=== PATIENT | female | born 1970 | race Caucasian/White ===

== ENCOUNTER 2020-05-17 17:52 | Emergency (ER) | payer OTHER, SELFPAY ==
[2020-05-17 17:59] VITALS: BP 103/62; BP 110/70; PULSE 82; PULSE 87; RESP 16; TEMP 37.5; O2SAT 98; O2SAT 99; BMI 27.1
--- NOTE | 2020-05-17 18:14 | ED.SYNCOPE ---
HPI - Syncope General Chief Complaint: Syncope Stated Complaint: SYNCOPAL EPISODE Time Seen by Provider: 05/17/20 18:13 Source: patient Mode of arrival: EMS Limitations: no limitations History of Present Illness HPI narrative: Patient with significant past medical history received COVID vaccine 2 days ago her was diagnosed with COVID today came here because she was feeling weak and when bent down fell lightheaded and almost passed out patient denies any fever no cough no shortness of breath saturating 99% at room air MD complaint: felt faint and almost passed out Related Data Allergies Allergy/AdvReac Type Severity Reaction Status Date / Time No Known Allergies Allergy Unverified 10/25/19 16:45 Review of Systems Review of Systems: Constitutional : No Weight loss, No Fever, No Chills ENT/Mouth : No sore throat, No Rhinorrhea Eyes: No Eye Pain, No Swelling Cardiovascular : No Chest Pain, no palpitations Respiratory : No Cough, No Sputum, no shortness of breath Gastrointestinal : no Nausea, No Vomiting, No Diarrhea, No abdominal Pain, no black stools Genitourinary : No Dysuria, No Urinary Frequency Musculoskeletal : No joint pain, No Myalgias, No Joint Swelling Skin : No Skin Lesions, No rash Neuro : + Weakness, No Numbness, No Dizziness, No Headache Psych : No Anxiety/Panic, No Depression Heme/Lymph: No Bruising, No Lymphadenopathy Endocrine : No Polyuria, No Polydipsia All other systems reviewed and are negative [facility]LY [facility] Past Medical History Medical History Anxiety Arthritis Asthma delivery delivered Cholecystectomy planned Fibromyalgia Vertigo Surgical History Tubal ligation status Social History Social History Advance Directives: No Advance Directives Information Provided: Yes Physical Exam Vital Signs: Vital Signs: Last Vital Signs Temp 99.5 F 05/17/20 17:59 Pulse 86 05/17/20 18:43 Resp 16 05/17/20 18:43 BP 110/65 05/17/20 18:43 Pulse Ox 100 05/17/20 18:43 Body Mass Index 27.1 Appearance: Alert. Oriented X3. No acute distress. Eyes: Pupils equal, round and reactive to light. ENT: Pharynx normal. Neck: Normal inspection. Neck supple. CVS: Normal heart rate and rhythm. Pulses normal. Respiratory: No respiratory distress. Breath sounds normal. Abdomen: Soft and nontender. Bowel sounds are present, no mass palpable, no CVA tenderness Skin: Skin warm and dry. Normal skin color. Normal skin turgor. Extremities: No lower extremity edema. No calf tenderness Neuro: Oriented X 3. No motor deficit. No sensory deficit. MDM - Syncope MDM Narrative Medical decision making narrative: Patient COVID positive with near-syncope episode likely vasovagal saturating 99% at room air will discharge patient home Lab Data Attestation: I reviewed the patient's lab results. Labs: Lab Results 05/17/20 Range/Units 18:39 COVID-19 (JOCELYNE) Positive A (Negative) COVID-19 Clin Com See Note ECG Data Attestation: I personally reviewed and interpreted this ECG as follows: Interpretation: Heart rate 88 beats per minute nonspecific ST T wave changes normal axis no acute ischemia Discharge Plan Discharge Clinical Impression: Vasovagal syncope, COVID-19 Patient Disposition: Home, Self-Care Instructions: Syncope (ED), COVID-19 (Coronavirus Disease 2019) (ED) Additional Instructions: Drink plenty of fluids self isolate report to the ER if increased shortness of breath Interventions: ED Discharge Assessment Last Done: 05/17/20 20:14 Discharge Date/Time: 05/17/20 20:17
[2020-05-17 18:42] VITALS: O2SAT 100
[2020-05-17 18:43] VITALS: BP 110/65; PULSE 86; PULSE 88; RESP 16; O2SAT 100
[2020-05-17] MEDS: 0.9 % Sodium Chloride 1,000 ML 999 ML IVCONT (18:47)
[2020-05-17 19:04] LABS: COVID-19 Test Positive (Negative); IDNOW Serial# 9DD0AD1C
--- NOTE | 2020-05-17 19:15 | ECG_ITS ---
Test Reason : SYNCOPE Blood Pressure : / mmHG Vent. Rate : 088 BPM Atrial Rate : 088 BPM P-R Int : 168 ms QRS Dur : 078 ms QT Int : 362 ms P-R-T Axes : 052 001 -13 degrees QTc Int : 438 ms Normal sinus rhythm Nonspecific T wave abnormality Borderline ECG When compared with ECG of 13-NOV-2018 12:28, No significant change was found Referred By: Manuel Briones Electronically Signed By:YUSUF BROWN
== END 2020-05-17 20:17 | disposition home or self-care (01) ==
PROVIDERS: Emergency Provider Internal Medicine; PCP Internal Medicine
DX: U07.1 COVID-19 (principal); R55 Syncope and collapse; R53.1 Weakness
CPT/HCPCS: 36415; 87635; 93005; 96360; 99284

== ENCOUNTER 2020-09-08 16:26 | Emergency (ER) | payer OTHER, SELFPAY ==
[2020-09-08 17:36] VITALS: BP 111/56; PULSE 79; RESP 18; TEMP 36.2; O2SAT 100; BMI 26.6
[2020-09-08 19:17] LABS: MANUAL DIFF FLAG NO
[2020-09-08 19:19] LABS: Basophils Percent Auto 0.7 % (0-2); Eosinophils Absolute Auto 0.1 X10*3/uL (0.0-0.4); Eosinophils Percent Auto 2.4 % (0-4); Hematocrit 28.9 % (37-47); Hemoglobin 8.9 g/dl (12.0-16.0); Lymphocytes Absolute Auto 1.5 X10*3/uL (1.2-4.9); Lymphocytes Percent Auto 36.7 % (20-40); Mean Corpuscular HGB Conc 30.8 g/dl (31.0-35.0); Mean Corpuscular Hemoglobin 24.2 pg (27.0-33.0); Mean Corpuscular Volume 78.5 fL (80-98); Mean Platelet Volume 9.4 fL (9.4-12.3); Monocytes Absolute Auto 0.4 X10*3/uL (0.1-1.2); Monocytes Percent Auto 9.5 % (2-11); Neutrophils Absolute Auto 2.1 X10*3/uL (2.0-8.3); Neutrophils Percent Auto 50.7 % (45-73); Platelet Count 417 X10*3/uL (160-400); Red Blood Count 3.68 X10*6/uL (4.20-5.50); Red Cell Distribution Width 17.7 % (11.0-16.0); White Blood Count 4.2 X10*3/uL (4.8-10.8)
[2020-09-08 19:31] LABS: COVID-19 Test Negative (Negative)
[2020-09-08 19:37] LABS: Anion Gap 13 (12-20); Blood Urea Nitrogen 5 mg/dL (9-16); Calcium 9.5 mg/dL (8.4-10.2); Carbon Dioxide 25 mmol/L (22-29); Chloride 106 mmol/L (96-108); Creatinine Clr Calc Pharmacy 98.4; Estimated Glomerular Filt Rate > 60; Glucose Random 82 mg/dL (60-115); Potassium 3.9 mmol/L (3.3-5.1); Sodium 140 mmol/L (135-145)
[2020-09-08 20:28] VITALS: BP 103/64; PULSE 67; RESP 18; TEMP 36.7; O2SAT 100
[2020-09-08] MEDS: Butalb/Acetamin/Caff 50/325/40 TABLET 1 TAB PO (21:20)
--- NOTE | 2020-09-08 21:31 | PC.NURSE ---
Pt medicated per MAR, requesting Dr Briones to bedside with hourly sign language interpreter stating, in Nepali, I don't understand Nepali that well. The doctor came in and talked to me and I didn't understand everything. I told him about my headache but I didn't get to tell him about my legs which bother me every night. I heard interpreters being used for other patients, but nobody came to talk to me. Dr Briones made aware of pt's concerns/requests. Anselmo states let her know I'll come in to talk with her with the hourly sign language interpreter. Pt updated. Pt expresses understanding.
--- NOTE | 2020-09-08 21:47 | PC.NURSE ---
Dr Briones and translator interpreter at bedside
[2020-09-08 22:23] VITALS: BP 136/78; PULSE 60; RESP 14; TEMP 36.9; O2SAT 100
--- NOTE | 2020-09-08 22:39 | ED.HA ---
HPI - Headache General Chief Complaint: Headache Stated Complaint: headache Time Seen by Provider: 09/08/20 21:09 Source: patient Mode of arrival: ambulatory Limitations: no limitations History of Present Illness HPI Narrative: Patient with history of migraine headaches take sumatriptan been having headache for last 4 days not getting better light sensitive slight nausea no vomiting patient took her sumatriptan 2 days ago without much relief. No relation with position change no head injury no fever no neck pain. 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 MD elicited complaint: migraine Related Data Previous Rx's Medication Instructions Recorded clelziiuwq-kuaagxldendqp-wjburena 1 cap PO Q6H PRN #20 cap 09/08/20 50 mg-300 mg-40 mg capsule (Fioricet) tramadol 50 mg tablet 50 mg PO Q6H PRN #20 tab 09/08/20 Allergies Allergy/AdvReac Type Severity Reaction Status Date / Time No Known Allergies Allergy Verified 09/08/20 17:35 Review of Systems Review of Systems: Yes all other systems are reviewed and are negative FOR[facility]LY [facility] Past Medical History Medical History Anxiety Arthritis Asthma delivery delivered Cholecystectomy planned Fibromyalgia Vertigo Surgical History Tubal ligation status Social History Social History Advance Directives: No Advance Directives Information Provided: Yes Physical Exam Vital Signs: Vital Signs: Last Vital Signs Temp 98.4 F 09/08/20 22:23 Pulse 60 09/08/20 22:23 Resp 14 09/08/20 22:23 BP 136/78 09/08/20 22:23 Pulse Ox 100 09/08/20 22:23 Body Mass Index 26.6 Appearance: Alert. Oriented X3. No acute distress. Eyes: PERRLA, No Nystagmus ENT: Pharynx normal. Oral Mucosa moist, no temporal artery tenderness Neck: Normal inspection. Neck supple. CVS: Normal heart rate and rhythm. Pulses normal. Respiratory: No respiratory distress. Equal air entry bilateral, no wheezing/rales/rhonchi Abdomen: Soft and nontender. Bowel sounds are present, no mass palpable, no CVA tenderness Skin: Skin warm and dry. Normal skin color. Normal skin turgor. Extremities: No lower extremity edema. No calf tenderness Neuro: Oriented X 3. No motor deficit. No sensory deficit.No cerebellar signs , cranial nerves II-XII intact MDM - Headache MDM Narrative Medical decision making narrative: Patient feeling much better after Imitrex headache is almost gone will discharge patient home on Fioricet for peripheral neuropathy. Patient advised to follow-up with her inside sales engineer patient already taking gabapentin Differential Diagnosis Differential diagnosis: Likely migraine Lab Data Result diagrams: 09/08/20 19:12 09/08/20 19:12 Labs: Lab Results 09/08/20 09/08/20 09/08/20 Range/Units 19:09 19:12 19:12 WBC 4.2 L (4.8-10.8) X10*3/uL RBC 3.68 L (4.20-5.50) X10*6/uL Hgb 8.9 L (12.0-16.0) g/dl Hct 28.9 L (37-47) % MCV 78.5 L (80-98) fL MCH 24.2 L (27.0-33.0) pg MCHC 30.8 L (31.0-35.0) g/dl RDW 17.7 H (11.0-16.0) % Plt Count 417 H (160-400) X10*3/uL MPV 9.4 (9.4-12.3) fL Immature Gran % (Auto) 0.0 (0.0-0.4) % Neut % (Auto) 50.7 (45-73) % Lymph % (Auto) 36.7 (20-40) % [place] % (Auto) 9.5 (2-11) % Eos % (Auto) 2.4 (0-4) % Baso % (Auto) 0.7 (0-2) % Lymph # (Auto) 1.5 (1.2-4.9) X10*3/uL [place] # (Auto) 0.4 (0.1-1.2) X10*3/uL Eos # (Auto) 0.1 (0.0-0.4) X10*3/uL Baso # (Auto) 0.0 (0.0-0.2) X10*3/uL Abs Immat Gran (auto) 0.00 (0.00-0.03) X10*3/uL Absolute Neuts (auto) 2.1 (2.0-8.3) X10*3/uL Absolute Nucleated RBC 0.000 (0.0-0.012) X10*3/uL Nucleated RBC % (auto) 0.0 (0.0-0.2) /100WBC Sodium 140 (135-145) mmol/L Potassium 3.9 (3.3-5.1) mmol/L Chloride 106 (96-108) mmol/L Carbon Dioxide 25 (22-29) mmol/L Anion Gap 13 (12-20) BUN 5 L (9-16) mg/dL Creatinine 0.65 (0.5-1.4) mg/dL Estim Creat Clear Calc 98.4 Estimated GFR > 60 Random Glucose 82 (60-115) mg/dL Calcium 9.5 (8.4-10.2) mg/dL COVID-19 (JOCELYNE) Negative (Negative) COVID-19 Clin Com See Note Discharge Plan Discharge Clinical Impression: Migraine Qualifiers: Migraine type: without aura Status migrainosus presence: with status migrainosus Intractability: not intractable Qualified Code(s): G43.001 - Migraine without aura, not intractable, with status migrainosus Patient Disposition: Home, Self-Care Instructions: Migraine Headache (ED) Additional Instructions: Rest at home take medication for migraine as advised and follow with PCP Prescriptions: New tramadol 50 mg tablet 50 mg PO Q6H PRN (Reason: pain) Qty: 20 RF: 0 rerzsnihmn-imbimdctkgjyz-hsta [Fioricet] 50-300-40 mg capsule 1 cap PO Q6H PRN (Reason: Migraine Headache) Qty: 20 RF: 0 Print Language: Armenian
[2020-09-08 23:08] VITALS: BP 114/53; PULSE 64; RESP 16; O2SAT 98
== END 2020-09-08 23:18 | disposition home or self-care (01) ==
PROVIDERS: Emergency Provider Internal Medicine; PCP Internal Medicine
DX: G43.001 Migraine without aura, not intractable, with status migrainosus (principal); Z79.899 Other long term (current) drug therapy; Z20.822 Contact with and (suspected) exposure to COVID-19
CPT/HCPCS: 36415; 80048; 85025; 87635; 96372; 99284; J3030

== ENCOUNTER 2020-09-16 11:30 | Outpatient (REF) | payer OTHER, SELFPAY | END 2020-09-16 11:31 | disposition home or self-care (01) | LOC: HO.LAB 11:30 | PROVIDERS: PCP Internal Medicine; Visit Provider Internal Medicine | DX: Z20.822 Contact with and (suspected) exposure to COVID-19 (principal) | CPT/HCPCS: C9803; U0003; U0005 ==

== ENCOUNTER 2023-05-25 09:31 | Emergency (ER) | payer OTHER, SELFPAY ==
[2023-05-25] VITALS (9 sets, daily range): BP systolic 100–126; BP diastolic 61–82; PULSE 76–85; RESP 14–20; TEMP 36.4–37.1; O2SAT 96–100; BMI 29.8
--- NOTE | 2023-05-25 10:24 | ECG_ITS ---
Test Reason : NEAR SYNCOPE Blood Pressure : / mmHG Vent. Rate : 082 BPM Atrial Rate : 082 BPM P-R Int : 158 ms QRS Dur : 078 ms QT Int : 364 ms P-R-T Axes : 051 006 -02 degrees QTc Int : 425 ms Normal sinus rhythm Nonspecific ST and T wave abnormality Borderline ECG When compared with ECG of 17-MAY-2020 19:09, No significant change was found Referred By: Oumou George Electronically Signed By:YUSUF BROWN
--- NOTE | 2023-05-25 10:31 | ED.NAVMDI ---
HPI - Nausea/Vomiting/Diarrhea General Chief complaint: Nausea/Vomiting/Diarrhea Stated complaint: DIZZY,ABD PAIN,N/V THIS AM PER EMS Time Seen by Provider: 05/25/23 09:56 Source: patient, family and old records reviewed Mode of arrival: EMS Limitations: no limitations History of Present Illness HPI Narrative: 53 yo female with PMH of RA on methotrexate, fibromyalgia, prior c section, cholecystectomy, tubal ligation here with c/o having n/v/d this AM no travel, antibiotics felt weak and dizzy with near syncopal event no CP/SOB. Did have sharp abdominal pain during event that has resolved. Might have had bad cheese last night. No black or bloody stools. MD elicited complaint: nausea, vomiting, diarrhea and abdominal pain Onset (ago): hour(s) (few) Description of vomiting: watery Description of diarrhea: watery Associated nausea: Yes Associated abdominal pain: Yes Location of pain: diffuse Radiation: diffuse Pain consistency: now resolved Severity: moderate Quality: stabbing Exacerbating factors: none Relieving factors: none Associated symptoms: loss of appetite, malaise, nausea/vomiting, syncope (near) and weakness Related Data Previous Rx's ?Medication ?Instructions ?Recorded mdrcuxwylz-ujzdetmqxdmlg-toofmsqx 1 cap PO Q6H PRN Migraine Headache 09/08/20 50 mg-300 mg-40 mg capsule #20 caps (Fioricet) tramadol 50 mg tablet 50 mg PO Q6H PRN pain #20 tabs 09/08/20 ondansetron 4 mg disintegrating 4 mg PO Q8H PRN nausea and 05/25/23 tablet vomiting #20 tabs Allergies Allergy/AdvReac Type Severity Reaction Status Date / Time No Known Allergies Allergy Verified 05/25/23 09:53 Review of Systems Review of Systems: Constitutional : No Weight loss, No Fever, No Chills ENT/Mouth : No sore throat, No Rhinorrhea Eyes: No Swelling, No Redness Cardiovascular : No Chest Pain, No SOB, NoEdema Respiratory : No Cough, No Sputum, No Wheezing Gastrointestinal : Positive Nausea, Positive Vomiting, positive Diarrhea, positive abdominal Pain, No Hematochezia, No Melena Genitourinary : No Dysuria, No Urinary Frequency, No Hematuria, No Urgency Musculoskeletal : No joint pain, No Myalgias, No Joint Swelling Skin : No Skin Lesions, No rash Neuro : No Weakness, No Numbness, pos Dizziness, No Headache Psych : No Anxiety/Panic, No Depression Heme/Lymph: No Bruising, No Lymphadenopathy Endocrine : No Polyuria, No Polydipsia All other systems reviewed and are negative. Gastrointestinal: Gastrointestinal: Reports nausea PMFSH Past Medical History Attestation statement: The following information was validated with the patient. Source: old records reviewed Medical History Cholecystectomy planned delivery delivered Fibromyalgia Asthma Vertigo Arthritis Anxiety Surgical History Tubal ligation status Social History Social History (Updated 05/25/23 @ 10:38 by Oumou George DO) Patient Tobacco Use Status: Never used Tobacco Smoked in Last 30 Days: No Use of substances other than those prescribed or required for medical reasons: No Advance Directives: No Physical Exam Vital Signs: Vital Signs: Last Vital Signs Temp 98.7 F 05/25/23 13:50 Pulse 83 05/25/23 13:50 Resp 19 05/25/23 13:50 BP 105/61 05/25/23 13:50 Pulse Ox 97 05/25/23 13:50 O2 Del Method Room Air 05/25/23 13:50 BMI result Body Mass Index 29.8 Appearance: Alert. Oriented X3. No acute distress. Eyes: Pupils equal, round and reactive to light. ENT: Pharynx normal. Neck: Normal inspection. Neck supple. CVS: Normal heart rate and rhythm. Pulses normal. Respiratory: No respiratory distress. Breath sounds normal. Abdomen: Soft and nontender. Skin: Skin warm and dry. Normal skin color. Normal skin turgor. Extremities: No lower extremity edema. No calf ttp Neuro: Oriented X 3. No motor deficit. No sensory deficit. Medications Administered Discontinued Medications Generic Name Dose Route Start Last Admin Trade Name Freq PRN Reason Stop Dose Admin Sodium Chloride 1,000 mls @ 999 mls/hr 05/25/23 10:30 05/25/23 11:43 Ns IV 05/25/23 11:30 Infused .Q1H1M CHHAYA Infusion Sodium Chloride 1,000 mls @ 999 mls/hr 05/25/23 10:30 05/25/23 12:10 Ns IV 05/25/23 11:30 Infused .Q1H1M CHHAYA Infusion Ondansetron HCl 4 mg 05/25/23 10:23 05/25/23 10:54 Ondansetron Hcl 4 Mg/2 Ml Vial IVPUSH 05/25/23 10:24 4 mg ONCE ONE Administration Medical Decision Making Medical Decision Making [facility] Narrative: 53 yo female with PMH of RA on methotrexate, fibromyalgia, prior c section, cholecystectomy, tubal ligation here with start of nausea, vomiting, diarrhea this AM then developed 2 episodes of near syncope and feeling weak had sharp abdominal pain afterwards. Family was with her no trauma or headstrike. No CP/SOB. At this time suspect GI illness triggering near vasovagal episode. Will obtain labs, hydrate x 2L, zofran. Has no abdominal ttp on exam. No focal neuro findings no headache. Differential Diagnosis Differential Diagnoses: The differential diagnosis associated with the presentation includes GI illness, near syncope, dehydration, orthostatic VS Admission/Observation Consideration of admission/observation: Escalation of care including admission/observation considered repeat trop negative feels much better stable for DC tolerating PO, no dizziness when standing Lab Data [facility] Lab Attestation statement: I reviewed the patient's lab results. 05/25/23 11:17 05/25/23 11:17 Labs: Lab Results 05/25/23 05/25/23 05/25/23 Range/Units 11:17 11:49 13:18 WBC 7.9 (4.8-10.8) X10*3/uL RBC 4.32 (4.20-5.50) X10*6/uL Hgb 13.1 (12.0-16.0) g/dl Hct 40.2 (37.0-47.0) % MCV 93.1 (80.0-98.0) fL MCH 30.3 (27.0-33.0) pg MCHC 32.6 (31.0-35.0) g/dl RDW 13.2 (11.0-16.0) % Plt Count 255 (160-400) X10*3/uL MPV 10.2 (9.4-12.3) fL Immature Gran % (Auto) 0.4 (0.0-0.4) % Neut % (Auto) 89.3 H (45-73) % Lymph % (Auto) 4.8 L (20-40) % [place] % (Auto) 4.6 (2-11) % Eos % (Auto) 0.8 (0-4) % Baso % (Auto) 0.1 (0-2) % Lymph # (Auto) 0.4 L (1.2-4.9) X10*3/uL [place] # (Auto) 0.4 (0.1-1.2) X10*3/uL Eos # (Auto) 0.1 (0.0-0.4) X10*3/uL Baso # (Auto) 0.0 (0.0-0.2) X10*3/uL Abs Immat Gran (auto) 0.03 (0.00-0.03) X10*3/uL Absolute Neuts (auto) 7.0 (2.0-8.3) x10*3/uL Absolute Nucleated RBC 0.000 (0.0-0.012) X10*3/uL Nucleated RBC % (auto) 0.0 (0.0-0.2) /100WBC Sodium 139 (135-145) mmol/L Potassium 4.0 (3.3-5.1) mmol/L Chloride 110 H (96-108) mmol/L Carbon Dioxide 24 (22-29) mmol/L Anion Gap 9 L (12-20) BUN 11 (9-16) mg/dL Creatinine 0.66 (0.5-1.4) mg/dL Estim Creat Clear Calc 98.9 Estimated GFR > 60 Random Glucose 89 (60-115) mg/dL Calcium 8.0 L D (8.4-10.2) mg/dL Magnesium 1.7 (1.6-2.6) mg/dL Total Bilirubin 0.4 (0.0-1.0) mg/dL Direct Bilirubin 0.1 (0.0-0.5) mg/dL AST 14 (5-31) U/L ALT 17 (0-31) U/L Alkaline Phosphatase 42 (39-117) U/L Troponin I High Sens < 2.7 < 2.7 (<3.5-17.0) ng/L Total Protein 6.6 (6.5-8.0) g/dL Albumin 3.6 (3.5-5.0) g/dL Lipase 22 (8-78) U/L Urine Color Yellow Urine Appearance Clear Urine pH 7.5 (5.0-9.0) Ur Specific [place] 1.020 (1.005-1.025) Urine Protein 30 (1+) H (Neg-Trace) mg/dL Urine Glucose (UA) Negative (Negative) mg/dL Urine Ketones Negative (Negative) mg/dL Urine Blood Negative (Negative) Urine Nitrite Negative (Negative) Ur Leukocyte Esterase Trace H (Negative) Urine RBC 0-2 (0-2) /HPF Urine WBC 0-5 (0-5) /HPF Ur Squamous Epith Cells 0-2 (0-2) /HPF Urine Bacteria None Seen (None Seen) Hyaline Casts 0-2 (0-2) /LPF Influenza Type A (PCR) NEGATIVE (Negative) Influenza Type B (PCR) NEGATIVE (Negative) RSV RNA Qual (PCR) NEGATIVE (Negative) SARS-CoV-2 RNA (RT-PCR) NEGATIVE (Negative) Independent Interpretation I performed an independent interpretation of an: EKG Interpretation: Rate: 82 Rhythm: NSR [place]: left Normal P waves. Normal BLADIMIR. Normal QRS complex. ST T wave : no YAEL, inverted t waves III and V1 qTC: 425 prior studies: no acute ischemia The study has been interpreted contemporaneously by me. . Radiology Impression Discussion of test interpretation with radiology: I have reviewed the radiologist's reading. Independent Historian Clinical information obtained from an independent historian. History obtained from or confirmed by: EMS and Other (family) External Record Review External record reviewed: Office record Prescription Management I considered prescription management with: Other Discharge Plan Discharge Clinical Impression: Nausea vomiting and diarrhea, Vasovagal near syncope Patient Disposition: Home, Self-Care Instructions: Acute Nausea and Vomiting (ED), Acute Diarrhea (ED), Near Syncope (ED) Additional Instructions: stay hydrated , return for worsening symptoms and concerns, eat a bland diet. drink plenty of flulids return for pain, fevers, black of bloody stools or any other concerns. Prescriptions: New ondansetron 4 mg tablet,disintegrating 4 mg PO Q8H PRN (Reason: nausea and vomiting) Qty: 20 0RF No Action tramadol 50 mg tablet 50 mg PO Q6H PRN (Reason: pain) Qty: 20 0RF uzrotrnwpj-oxbflgcmlkkzx-nrxk [Fioricet] 50-300-40 mg capsule 1 cap PO Q6H PRN (Reason: Migraine Headache) Qty: 20 0RF Stand Alone Forms: Work/School Release Print Language: Belarusian
[2023-05-25] MEDS: 0.9 % Sodium Chloride 1,000 ML 999 ML IV ×2 (10:33→10:54)
[2023-05-25] MEDS: ondansetron HCL 4 MG/2 ML VIAL IVPUSH (10:54)
[2023-05-25 11:23] LABS: MANUAL DIFF FLAG NO
[2023-05-25 11:25] LABS: Basophils Percent Auto 0.1 % (0-2); Eosinophils Absolute Auto 0.1 X10*3/uL (0.0-0.4); Eosinophils Percent Auto 0.8 % (0-4); Hematocrit 40.2 % (37.0-47.0); Hemoglobin 13.1 g/dl (12.0-16.0); Imm Gran Abs Auto 0.03 X10*3/uL (0.00-0.03); Imm Gran Pct Auto 0.4 % (0.0-0.4); Lymphocytes Absolute Auto 0.4 X10*3/uL (1.2-4.9); Lymphocytes Percent Auto 4.8 % (20-40); Mean Corpuscular HGB Conc 32.6 g/dl (31.0-35.0); Mean Corpuscular Hemoglobin 30.3 pg (27.0-33.0); Mean Corpuscular Volume 93.1 fL (80.0-98.0); Mean Platelet Volume 10.2 fL (9.4-12.3); Monocytes Absolute Auto 0.4 X10*3/uL (0.1-1.2); Monocytes Percent Auto 4.6 % (2-11); Neutrophils Percent Auto 89.3 % (45-73); Platelet Count 255 X10*3/uL (160-400); Red Blood Count 4.32 X10*6/uL (4.20-5.50); Red Cell Distribution Width 13.2 % (11.0-16.0); White Blood Count 7.9 X10*3/uL (4.8-10.8)
[2023-05-25 11:39] LABS: Alanine Aminotransferase 17 U/L (0-31); Albumin Level 3.6 g/dL (3.5-5.0); Alkaline Phosphatase 42 U/L (39-117); Anion Gap 9 (12-20); Aspartate Amino Transferase 14 U/L (5-31); Bilirubin Direct 0.1 mg/dL (0.0-0.5); Bilirubin Total 0.4 mg/dL (0.0-1.0); Blood Urea Nitrogen 11 mg/dL (9-16); Carbon Dioxide 24 mmol/L (22-29); Chloride 110 mmol/L (96-108); Creatinine Clr Calc Pharmacy 98.9; Estimated Glomerular Filt Rate > 60; Glucose Random 89 mg/dL (60-115); Lipase 22 U/L (8-78); Magnesium 1.7 mg/dL (1.6-2.6); Sodium 139 mmol/L (135-145); Total Protein 6.6 g/dL (6.5-8.0)
[2023-05-25 11:47] LABS: Troponin-I High Sensitivity < 2.7 ng/L (<3.5-17.0)
[2023-05-25 11:57] LABS: Appearance Urine Clear; Color Urine Yellow; Glucose Urine UA Negative (Negative); Leukocyte Esterase Urine Trace (Negative); Nitrite Urine Negative (Negative); PH 7.5 (5.0-9.0); UMIC TRIGGER UACC YES; Urine Blood Negative (Negative); Urine Ketones Negative (Negative); Urine Protein 30 (1+) mg/dL (Neg-Trace)
[2023-05-25 11:59] LABS: Bacteria Urine None Seen (None Seen); Hyaline Casts Urine 0-2 /LPF (0-2); RBC Urine 0-2 /HPF (0-2); Squamous Epithelial Cell Urine 0-2 /HPF (0-2); WBC Urine 0-5 /HPF (0-5)
[2023-05-25 13:06] LABS: Influenza A PCR NEGATIVE (Negative); Influenza B PCR NEGATIVE (Negative); Resp Syncy Virus RNA Qual PCR NEGATIVE (Negative); SARS COV2 PCR INHOUSE NEGATIVE (Negative)
[2023-05-25 13:57] LABS: Troponin-I High Sensitivity < 2.7 ng/L (<3.5-17.0)
--- NOTE | 2023-05-25 14:32 | MHC.EDTECH ---
pt was assisted to bathroom with a steady gait stating dizziness has minimized and she feels much better . DO and RN aware
== END 2023-05-25 15:34 | disposition home or self-care (01) ==
PROVIDERS: Emergency Provider Emergency Medicine
DX: R42 Dizziness and giddiness (principal); R11.2 Nausea with vomiting, unspecified; R55 Syncope and collapse; R94.31 Abnormal electrocardiogram [ECG] [EKG]; Z03.818 Encounter for observation for suspected exposure to other biological agents ruled out; Z11.52 Encounter for screening for COVID-19; Z20.822 Contact with and (suspected) exposure to COVID-19; Z79.899 Other long term (current) drug therapy
CPT/HCPCS: 0241U; 36415; 80048; 80076; 81001; 83690; 83735; 84484; 85025; 93005; 96361; 96374; 99284; 99285; J2405

== ENCOUNTER → 2023-05-25 10:24 | Outpatient (BNV) | payer OTHER, SELFPAY | PROVIDERS: Emergency Provider Emergency Medicine; Visit Provider Internal Medicine | DX: R55 Syncope and collapse (principal) | CPT/HCPCS: 93010 ==